=== PATIENT | male | born 1960 ===

== ENCOUNTER 2024-08-28 10:49 | Outpatient (REF) | payer OTHER, SELFPAY ==
[2024-08-28 16:28] LABS: Calculated LDL 99 mg/dL (<100); Cholesterol 179 mg/dL (<200); Glucose 110 mg/dL (74-106); HDL Cholesterol 70 mg/dL (>or=40); Triglyceride 51 mg/dL (<150)
== END 2024-08-28 10:50 | disposition home or self-care (01) ==
LOC: NCHCN 10:49
PROVIDERS: Visit Provider Family Medicine
DX: Z00.00 Encounter for general adult medical examination without abnormal findings (principal)
CPT/HCPCS: 80061; 82947

== ENCOUNTER 2024-09-09 01:10 | Outpatient (CLI) | payer OTHER, SELFPAY ==
--- NOTE | 2024-09-09 | DI.RAD_ITS ---
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 TECHNIQUE: 2D digital imaging was performed. Three views. COMPARISON: No exams were available for comparison FINDINGS: BONES: No acute fracture is present. No bony destructive lesion is seen. Arm clips in distal femur and proximal tibial related to prior ACL repair. JOINTS: Severe narrowing of the medial femoral tibial joint space, with a [id number] appearance. Prominent periarticular spurring and varus angulation. Chondrocalcinosis is present in the menisci. A joint effusion is seen. There is spurring at the articular aspect of the patella. SOFT TISSUE: Vascular calcifications. IMPRESSION: Severe degenerative changes of the medial femoral tibial joint. DATA REPOSITORY: RADIATION DOSE DELIVERED:
== END 2024-09-09 01:30 ==
PROVIDERS: Visit Provider Family Medicine
DX: M17.32 Unilateral post-traumatic osteoarthritis, left knee (principal)
CPT/HCPCS: 73562